=== PATIENT | male | born 1980 | race Caucasian/White ===

== ENCOUNTER 2016-09-07 15:03 | Inpatient (IN) ==
[2016-09-07] MEDS ORDERED: ASPIRIN PO STA (16:48)
[2016-09-07 16:55] LABS: MANUAL DIFF NEEDED? NO
[2016-09-07 17:00] LABS: BASO% 0.3 % (0.0-0.8); EOS# 0.16 X1000 (0.0-0.7); HEMATOCRIT 38.7 % (42.0-52.0); HEMOGLOBIN 13.2 g/dL (14.0-18.0); IMM GRAN# 0.02 X1000 (0.0-0.04); IMM GRAN% 0.3 % (0.0-0.5); LYMPH# 2.86 X1000 (1.2-3.4); LYMPH% 35.9 % (20.5-51.1); MCH 29.4 PG (27-31); MCHC 34.1 g/dL (33-37); MCV 86.2 FL (81-99); MONO% 8.8 % (1.7-9.3); MPV 12.7 FL (7.4-10.4); NEUT% 52.7 % (42.2-75.2); PLT 209 X1000 (130-400); RBC 4.49 XMIL (4.7-6.1)
--- NOTE | 2016-09-07 17:01 | PROVIDER DOCUMENTATION ---
This chart was entered by Ector Hilario Scribe, acting as scribe for Laura Laura MD. HPI-Chest Pain - General Chief Complaint: Chest Pain Stated Complaint: CHEST PAIN/ABNORMAL EKG Time Seen by Provider: 09/07/16 15:17 Source: patient Allergies/Adverse Reactions: Patient Allergies Allergy/AdvReac Type Severity Reaction Status Date / Time tramadol Allergy HIVES Verified 09/07/16 15:11 ketorolac tromethamine * AdvReac HIVES Verified 09/07/16 15:11 [From Toradol] Home Medications: Home Medication List Medication Instructions Recorded Confirmed Last Taken Type Alprazolam [Xanax] 1 mg PO DAILY 12/23/15 09/07/16 09/06/16 History Hydrocodone/APAP 7.5 mg/325 mg 1 each PO Q6H PRN PRN #10 tablet 04/02/1609/06/16 Rx [Basin-7.5] - History of Present Illness-CP Nature of Presenting Problem: pt is a 35 yo M that presents to the ER for abnormal labs and ekg. pt was having outpatient tests today per . Sent here due to it being abnormal. patient had chest pain days ago but pain has improved. no cardiac history Location: reports: other (left lower ches) Chest Pain Radiation: reports: no radiation Quality of Pain: reports: dull Severity in ED: mild Onset/Duration: abrupt, 3 days ago, 5 days ago Timing: improving Context/Activities at Onset: reports: none Modifying Factors: improves with: nothing Associated Symptoms: reports: nausea. denies: abdominal pain, back pain, dizziness, fatigue, fever/chills, shortness of breath, vomiting Aspirin Treatment Today: 325 mg x 1, provided by ED Prior Chest Pain/Cardiac Workup: reports: no prior chest pain, no prior cardiac workup Similar Symptoms Previously?: Yes Recently Seen Here or By Another Healthcare Provider: Yes Review of Systems - Adult - REVIEW OF SYSTEMS - ADULT Constitutional: denies: chills, fever Eyes: denies: decreased vision, blurred vision, double vision Ears, Nose, Mouth & Throat: denies: ear pain, sinus problem, throat pain, throat swelling Cardiovascular: reports: chest pain. denies: palpitations, syncope Respiratory: denies: shortness of breath, wheezing Gastrointestinal: reports: nausea. denies: abdominal pain, diarrhea, vomiting Genitourinary: reports: no symptoms reported Musculoskeletal: reports: no symptoms reported Integumentary: reports: no symptoms reported Neurological: reports: no symptoms reported Psychiatric: reports: no symptoms reported Endocrine: reports: no symptoms reported Hematologic/Lymphatic: reports: no symptoms reported Allergic/Immunologic: reports: no symptoms reported All Other Systems: Reviewed and Negative Past History - Adult - PAST MEDICAL HISTORY-ADULT Review of Records: reports: Old Records Reviewed, Nursing Assessment Review, Medications Reviewed Musculoskeletal: reports: chronic pain (back), intervertebral disc disease, neck /back injury Psychiatric: reports: anxiety Additional History: Disabled - PRIOR SURGERIES/PROCEDURES Surgical/Procedure History: reports: none - IMMUNIZATION STATUS Childhood Immunizations: See Nurse Assessment Flu Vaccine: See Nurse Assessment - FAMILY HISTORY Family History: reviewed, not pertinent - SOCIAL HISTORY Smoking: cigarettes, less than 1 pack/day Living Situation: family Physical Exam-General - PHYSICAL EXAM-ADULT Initial Vital Signs Reviewed: Yes - CONSTITUTIONAL General Appearance: alert, no apparent distress - EYES Eyes: PERRL/EOMI, pink conjunctivae - HEAD, EARS, NOSE, MOUTH & THROAT HENMT: normocephalic/atraumatic, moist mucous membranes, normal ENT inspection - NECK Neck: full range of motion, normal inspection - RESPIRATORY Respiratory: chest non-tender, lungs clear, normal breath sounds, no respiratory distress, no accessory muscle use - CARDIOVASCULAR Cardiovascular: regular rate, rhythm, no edema, no murmur - GASTROINTESTINAL (ABDOMEN) Abdominal Exam: normal bowel sounds, non tender, soft, no organomegaly, no pulsatile mass - MUSCULOSKELETAL Extremity: normal range of motion, normal inspection, no pedal edema - SKIN Integumentary: normal color, warm/dry - NEUROLOGIC Neurologic: grossly normal, no motor/sensory deficits - PSYCHIATRIC Psych/Mental Status: normal mood/affect, normal thought content, normal thought process, oriented x 3 Progress - PLAN OF CARE/RESULTS Progress/Plan/Lab Results: Vital Signs - 8 hr 09/07/16 15:07 09/07/16 16:33 09/07/16 16:44 Temperature 98.5 F Pulse Rate 78 85 65 Respiratory Rate 18 17 24 Blood Pressure 120/74 122/82 085/046 O2 Sat by Pulse Oximetry 99 95 94 L Laboratory Results - last 24 hr 05/07/2209/07/16 09/07/16 15:25 15:25 15:25 WBC RBC Hgb Hct MCV MCH MCHC RDW Std Deviation Plt Count MPV Immature Gran % (Auto) Neut % (Auto) Lymph % (Auto) [place] % (Auto) Eos % (Auto) Baso % (Auto) Immature Gran # (Auto) Neut # (Auto) Lymph # (Auto) Churchill # (Auto) Eos # (Auto) Baso # (Auto) PT INR APTT (Factor Assay) D-Dimer Sodium 136 Potassium 3.8 Chloride 103 Carbon Dioxide 22 L Anion Gap 11 BUN 15 Creatinine 0.8 Estimated GFR/1.73 m2 > 60 BUN/Creatinine Ratio 19 Glucose 95 Calculated Osmolality 273 Calcium 9.1 Magnesium 1.8 Total Bilirubin 0.20 AST 23 ALT 20 Alkaline Phosphatase 71 Creatine Kinase 450 H Creatine Kinase Index 1.1 CK-MB (CK-2) 4.98 Troponin T < 0.010 Nto-C-Izssqojzsus Pept 113 H Total Protein 6.7 Albumin 4.1 Globulin 3.0 Albumin/Globulin Ratio 2.0 09/07/16 09/07/16 15:25 15:25 WBC 7.97 RBC 4.49 L Hgb 13.2 L Hct 38.7 L MCV 86.2 MCH 29.4 MCHC 34.1 RDW Std Deviation 13.1 Plt Count 209 MPV 12.7 H Immature Gran % (Auto) 0.3 Neut % (Auto) 52.7 Lymph % (Auto) 35.9 Churchill % (Auto) 8.8 Eos % (Auto) 2.0 Baso % (Auto) 0.3 Immature Gran # (Auto) 0.02 Neut # (Auto) 4.21 Lymph # (Auto) 2.86 Churchill # (Auto) 0.70 H Eos # (Auto) 0.16 Baso # (Auto) 0.02 PT 12.6 INR 0.91 APTT (Factor Assay) 36.9 D-Dimer < 0.22 L Sodium Potassium Chloride Carbon Dioxide Anion Gap BUN Creatinine Estimated GFR/1.73 m2 BUN/Creatinine Ratio Glucose Calculated Osmolality Calcium Magnesium Total Bilirubin AST ALT Alkaline Phosphatase Creatine Kinase Creatine Kinase Index CK-MB (CK-2) Troponin T Ens-J-Oquckkttifp Pept Total Protein Albumin Globulin Albumin/Globulin Ratio Orders Category Date Time Status Admit - [facility] Routine AdmDCTranf 09/07/16 17:49 Ordered Call Admitting on Arrival AT ADMISSION Care 09/07/16 17:49 Active Cardiac Monitoring DIRECTED Care 09/07/16 16:48 Active Saline Loc NOW Care 09/07/16 16:48 Active CBC WITH ELECTRONIC DIFF [HEME] Stat Lab 09/07/16 15:25 Completed CK PROFILE [SP CHEM] Stat Lab 09/07/16 15:25 Completed COMPREHENSIVE METABOLIC PANEL [CHEM] Stat Lab 09/07/16 15:25 Completed D-DIMER PL [COAG] Stat Lab 09/07/16 15:25 Completed MAGNESIUM [CHEM] Stat Lab 09/07/16 15:25 Completed PRO B-NATRIURETIC PEPTIDE Stat Lab 09/07/16 15:[address]IME WITH INR [address] [COAG] Stat Lab 09/07/16 15:[address] [COAG] Stat Lab 09/07/16 15:25 Completed TROPONIN T Stat Lab 09/07/16 15:[address] W/POSS RFLX CULT [URINALYSIS] Stat Lab 09/07/16 16:48 Uncollected URINE DRUG SCREEN PL Stat Lab 09/07/16 16:48 Uncollected Aspirin Med 09/07/16 16:48 Discontinued 325 mg PO STAT STA Telemetry [OM.EQ] Routine Oth 09/07/16 17:49 Active EKG [EKG] Stat Ther 09/07/16 16:48 Draft Transfer/Admit Order [TRANSFER] Routine Transfer 09/07/16 17:51 Ordered outpatient xray done today, negative per Vital Signs Temp Pulse Resp BP Pulse Ox 09/07/16 16:44 65 24 085/046 94 L 09/07/16 16:33 85 17 122/82 95 09/07/16 15:07 98.5 F 78 18 120/74 99 tramadol Allergy (Verified 09/07/16 15:11) HIVES ketorolac tromethamine * [From Toradol] Adverse Reaction (Verified 09/07/16 15: 11) HIVES Alprazolam [Xanax] 1 mg PO DAILY 12/23/15 Hydrocodone/APAP 7.5 mg/325 mg [Basin-7.5] 1 each PO Q6H PRN PRN #10 tablet Laboratory 09/07/16 09/07/16 09/07/16 15:25 15:25 15:25 WBC 7.97 RBC 4.49 L Hgb 13.2 L Hct 38.7 L MCV 86.2 MCH 29.4 MCHC 34.1 RDW Std Deviation 13.1 Plt Count 209 MPV 12.7 H Immature Gran % (Auto) 0.3 Neut % (Auto) 52.7 Lymph % (Auto) 35.9 Churchill % (Auto) 8.8 Eos % (Auto) 2.0 Baso % (Auto) 0.3 Immature Gran # (Auto) 0.02 Neut # (Auto) 4.21 Lymph # (Auto) 2.86 Churchill # (Auto) 0.70 H Eos # (Auto) 0.16 Baso # (Auto) 0.02 PT 12.6 INR 0.91 APTT (Factor Assay) 36.9 D-Dimer < 0.22 L Sodium Potassium Chloride Carbon Dioxide Anion Gap BUN Creatinine Estimated GFR/1.73 m2 BUN/Creatinine Ratio Glucose Calculated Osmolality Calcium Magnesium Total Bilirubin AST ALT Alkaline Phosphatase Creatine Kinase Creatine Kinase Index CK-MB (CK-2) Troponin T Wsv-Q-Qrsofljjcjw Pept 113 H Total Protein Albumin Globulin Albumin/Globulin Ratio 09/07/16 09/07/16 15:25 15:25 WBC RBC Hgb Hct MCV MCH MCHC RDW Std Deviation Plt Count MPV Immature Gran % (Auto) Neut % (Auto) Lymph % (Auto) Churchill % (Auto) Eos % (Auto) Baso % (Auto) Immature Gran # (Auto) Neut # (Auto) Lymph # (Auto) Churchill # (Auto) Eos # (Auto) Baso # (Auto) PT INR APTT (Factor Assay) D-Dimer Sodium 136 Potassium 3.8 Chloride 103 Carbon Dioxide 22 L Anion Gap 11 BUN 15 Creatinine 0.8 Estimated GFR/1.73 m2 > 60 BUN/Creatinine Ratio 19 Glucose 95 Calculated Osmolality 273 Calcium 9.1 Magnesium 1.8 Total Bilirubin 0.20 AST 23 ALT 20 Alkaline Phosphatase 71 Creatine Kinase 450 H Creatine Kinase Index 1.1 CK-MB (CK-2) 4.98 Troponin T < 0.010 Lih-W-Nixhxaoubqm Pept Total Protein 6.7 Albumin 4.1 Globulin 3.0 Albumin/Globulin Ratio 2.0 Result Diagrams: 09/07/16 15:25 09/07/16 15:25 - EKG 1 Time of EKG reading by physician:: 16:57 EKG Read and Signed by:: Laura Laura EKG Interpretation (*Must complete 3 of following elements*): Abnormal Rate: 74 Rhythm: NSR [place]: normal QRS: normal ST Wave: non-specific ST changes - CONSULTS/PCP/HOSPITALIST Notification #1 *Consult/PCP/Hospitalist*: Time Discussed: 17:49 Consult Disposition: Will see in ED Departure - Departure Time of Disposition Decision: 17:48 DIAGNOSIS: Chest pain in adult, EKG abnormalities Disposition: ADMITTED INPATIENT 09 Certified Medical Emergency: Emergent Condition: Stable Referrals and Follow-Ups: Casey Rob MD [Primary Care Provider] - - Critical Care Note This patient required my direct & personal management of CC.: No This chart was documented by the indicated scribe, (Ector Hilario, Scribe) and accurately reflects the services I performed and decisions made by me, Laura Laura MD, as attested by the provider's signature.
[2016-09-07 17:05] LABS: INR 0.91 (0.86-1.15); PROTIME 12.6 Seconds (12.1-15.5)
[2016-09-07 17:06] LABS: PTT PL 36.9 Seconds (22.6-43.9)
[2016-09-07 17:14] LABS: AGAP 11; ALBUMIN 4.1 g/dL (3.5-5.0); ALKALINE PHOSPHATASE 71 U/L (32-122); BUN 15 mg/dL (8-22); CALCIUM 9.1 mg/dL (8.8-10.2); CHLORIDE 103 mmol/L (98-107); COSMO 273; GOT 23 U/L (10-34); GPT 20 U/L (10-44); MAGNESIUM 1.8 mg/dL (1.5-2.7); POTASSIUM 3.8 mmol/L (3.5-5.1); SODIUM 136 mmol/L (136-145); TCO2 22 mmol/L (25-35); TOTAL PROTEIN 6.7 g/dL (6.3-8.3)
--- NOTE | 2016-09-07 17:15 | EKG Report ---
Test Performed on : 09/07/2016 4:57:36 PM Test Reason : CHEST PAIN Blood Pressure : / mmHG Vent. Rate : 074 BPM Atrial Rate : 074 BPM P-R Int : 124 ms QRS Dur : 084 ms QT Int : 416 ms P-R-T Axes : 008 065 -08 degrees QTc Int : 461 ms Normal sinus rhythm. Nonspecific T wave abnormality Prolonged QT Abnormal ECG When compared with ECG of 07-SEP-2016 13:59, (Unconfirmed) Nonspecific T wave abnormality has replaced inverted T waves in Inferior leads Unconfirmed Result
[2016-09-07 17:17] LABS: CK PROFILE 450 U/L (24-204)
[2016-09-07 17:36] LABS: CK INDEX 1.1 (0.0-2.5); CK-MB 4.98 ng/mL (0.0-5.0)
[2016-09-07 18:23] LABS: UR AMPHETAMINES QUAL NONE DETECTED (NONE DETECT); UR BARBITUATES QUAL NONE DETECTED (NONE DETECT); UR BENZODIAZEPIN QUAL NONE DETECTED (NONE DETECT); UR CANNABINOIDS QUAL NONE DETECTED (NONE DETECT); UR COCAINE QUAL NONE DETECTED (NONE DETECT); UR MDMA QUAL NONE DETECTED (NONE DETECT); UR METHADONE QUAL NONE DETECTED (NONE DETECT); UR METHAMPHETAMINE QUAL NONE DETECTED (NONE DETECT); UR OPIATES QUAL NONE DETECTED (NONE DETECT); UR OXYCODONE QUAL NONE DETECTED (NONE DETECT); UR PCP QUAL NONE DETECTED (NONE DETECT); UR TCA QUAL NONE DETECTED (NONE DETECT)
[2016-09-07 18:32] LABS: BILIRUBIN URINE NEGATIVE (NEGATIVE); BLOOD URINE NEGATIVE (NEGATIVE); CLARITY SL. CLOUDY (CLEAR); COLOR YELLOW; GLUCOSE URINE NEGATIVE (NEGATIVE); LEUKOCYTES URINE 2+ (NEGATIVE); NITRITE URINE NEGATIVE (NEGATIVE); PROTEIN URINE NEGATIVE (NEGATIVE); SP GRAVITY URINE 1.025; UROBILINOGEN URINE 4+(12 mg/dL)
[2016-09-07 18:34] LABS: URINE CAST NONE SEEN /LPF; URINE CRYSTAL NONE SEEN /HPF; URINE CULTURE PL NEEDED? YES; URINE EPITHELIAL CELLS <10 /HPF (<10); URINE SOURCE CLEAN CATCH
[2016-09-07] MEDS ORDERED: ZOFRAN IV PRN (20:56)
[2016-09-07] MEDS ORDERED: NITROGLYCERIN SL PRN (20:56)
[2016-09-07] MEDS ORDERED: TYLENOL PO PRN (20:56)
[2016-09-07] MEDS ORDERED: SALINE LOCK IV FLUID XX ONE (20:56)
[2016-09-07] MEDS ORDERED: NORCO-7.5 PO PRN (20:58)
[2016-09-07 22:12] LABS: CK-MB 3.78 ng/mL (0.0-5.0)
--- NOTE | 2016-09-08 05:04 | EKG Report ---
Test Performed on : 09/08/2016 04:32:31 AM Test Reason : cp Blood Pressure : / mmHG Vent. Rate : 073 BPM Atrial Rate : 073 BPM P-R Int : 138 ms QRS Dur : 076 ms QT Int : 390 ms P-R-T Axes : 058 056 236 degrees QTc Int : 429 ms Normal sinus rhythm. T wave abnormality, consider lateral ischemia Abnormal ECG When compared with ECG of 07-SEP-2016 16:57, (Unconfirmed) No significant change was found Unconfirmed Result
[2016-09-08 06:54] LABS: HEMATOCRIT 41.8 % (42.0-52.0); HEMOGLOBIN 13.8 g/dL (14.0-18.0); MCH 28.5 PG (27-31); MCV 86.2 FL (81-99); MPV 11.9 FL (7.4-10.4); RBC 4.85 XMIL (4.7-6.1)
[2016-09-08] MEDS ORDERED: PRILOSEC PO SCH (07:00)
[2016-09-08 07:27] LABS: AGAP 10; ALKALINE PHOSPHATASE 66 U/L (32-122); BUN 17 mg/dL (8-22); CALCIUM 9.3 mg/dL (8.8-10.2); CHLORIDE 106 mmol/L (98-107); COSMO 277; GOT 17 U/L (10-34); GPT 17 U/L (10-44); HDL 37 mg/dL (35-55); LDL 118 mg/dL; POTASSIUM 4.2 mmol/L (3.5-5.1); SODIUM 138 mmol/L (136-145); TCO2 22 mmol/L (25-35); TOTAL PROTEIN 6.5 g/dL (6.3-8.3); TRIGLYCERIDES 105 mg/dL (39-160); VLDL 21 mg/dL
[2016-09-08 07:50] LABS: CK INDEX 1.1 (0.0-2.5); CK-MB 3.03 ng/mL (0.0-5.0)
[2016-09-08] MEDS ORDERED: XANAX PO SCH (09:00)
[2016-09-08 11:50] VITALS: BP 114/56
--- NOTE | 2016-09-08 13:57 | HISTORY AND PHYSICAL ---
CHIEF COMPLAINT: Chest pain, abnormal EKG. HISTORY OF PRESENT ILLNESS: This is a 35-year-old male with a history of chronic back pain, who presented to the emergency room under the recommendation of his primary care physician. Evidently, he had chest pain over the past days and Dr. Rob had ordered outpatient labs and then outpatient EKG. Dr. Rob was called after the EKG was performed as it was noted to have some T-wave inversion inferolateral in leads 2, 3, F, V5, and V6. Dr. Rob was called and he sent the patient to the emergency room for further evaluation. In the emergency room. The 1st EKG was done at 2 o'clock. Repeat EKG in the emergency room at 4:57 revealed nonspecific T-wave abnormality but no inverted T-waves inferolateral. He was noted to have troponins that were negative on multiple occasions with CK-MBs that were within normal limits. The patient stated that he had chest pain for a few days. He described this chest pain as a dull type chest pain at his left lower ribs. This pain started and stopped spontaneously. It could be somewhat recreated with palpation. He denied any known injury. He is being admitted for further evaluation and treatment. PAST MEDICAL HISTORY: Chronic back pain with chronic opiate use, degenerative disk disease, anxiety. PAST SURGICAL HISTORY: Denied. SOCIAL HISTORY: He smokes about a half a pack a day. He denies alcohol or illicit drug use. ALLERGIES: Toradol which causes hives. HOME MEDICATIONS: [place] 7.5 b.i.d. p.r.n., Xanax 1 mg b.i.d. REVIEW OF SYSTEMS: A 14 point review of systems is discussed with patient with pertinent positives stated in the HPI. He denied palpitations, dizziness, syncope, shortness of breath, PND, orthopnea, nausea, vomiting, diarrhea, constipation, black or bloody vomitus, black or bloody stools, hematuria, dysuria, frequency, urgency. PHYSICAL EXAMINATION: GENERAL: This is a very pleasant, 35-year-old male who is sitting in the bed, in no distress. VITAL SIGNS: Blood pressure is 113/77, with a heart rate of 74, respirations are 18, temperature is 98 degrees, with room air saturations of 96 to 99%. HEENT: Head is normocephalic, atraumatic. Pupils equal, round, react to light. EOMs are intact. Sclerae are anicteric. Mucous membranes are moist. NECK: Supple with trachea midline. CARDIOVASCULAR: Regular rate and rhythm. S1 and S2 appreciated. PULMONARY: Breath sounds are clear with no increased work of breathing noted. GASTROINTESTINAL: Abdomen was soft, nontender, nondistended with bowel sounds in all 4 quadrants. BACK: No CVAT. No spine tenderness. MUSCULOSKELETAL: Good range of motion to joints. EXTREMITIES: No clubbing, cyanosis, or edema. Calves are nontender. Pulses are palpable x4. NEUROLOGIC: He is alert and oriented x3. Cranial nerves 2 through 12 grossly intact. DIAGNOSTICS: WBC is 7.9, with hemoglobin 13.2, hematocrit 38.7, and platelets of 209,000. D- dimer is less than 0.22. Sodium 136, potassium 3.8, BUN 15, creatinine 0.8, with a glucose of 95. Troponin is less than 0.010 on multiple occasions. CK-MB is 3.78 and 4.98 with urine drug screen negative. Chest x-ray reveals no acute abnormality with lungs well expanded, heart not enlarged, vessels not distended, no pneumonia, no pleural effusions. ASSESSMENT: 1. Chest pain. 2. Abnormal electrocardiogram. 3. Tobacco abuse. 4. Chronic pain. PLAN: He will be admitted to the hospital. Placed on telemetry. We will continue to trend cardiac enzymes. We will repeat his EKG in the morning. He will be NPO after midnight for a nuclear stress test in the morning. Further treatments pending hospital course. Dictated by KATY Rangel for Del Cardenas MD cc: KATY Rangel MD
--- NOTE | 2016-09-08 16:24 | DISCHARGE SUMMARY ---
ADMISSION DATE: 09/07/2016 DISCHARGE DATE: 09/08/2016 DIAGNOSES: 1. Chest pain. 2. Abnormal EKG. 3. Tobacco abuse. 4. Chronic back pain. DIAGNOSTICS: A 09/07/2016 chest x-ray revealed no acute abnormality. HOSPITAL COURSE: Mr. Rock had experienced some left lower chest wall pain 3-5 days prior to being admitted. He was evaluated by his primary care physician. Dr. Rob sent for outpatient labs and EKG. EKG revealed inverted T-waves in the inferolateral leads. Therefore, he was sent to the ER for further evaluation. Repeat EKGs revealed nonspecific T-wave abnormality with negative troponins as well as CK-MB on multiple occasions. Telemetry revealed sinus rhythm. He had no further chest pain while in the hospital. We attempted to do a nuclear stress test at [facility] but we were unable to have the test as he had negative enzymes and no further chest pain. He is being discharged from [place]. He will go to [facility] and at that time his stress test will be performed. DISCHARGE MEDICATIONS: 1. [place] 7.5/325, 1 b.i.d. p.r.n. 2. Xanax 1 mg p.o. b.i.d. DISCHARGE VITAL SIGNS: Blood pressure 114/56, heart rate 61, respirations 19, temperature 97.6 degrees oral with room air saturations of 99%. DISCHARGE DIET: He will remain NPO until after his test is completed and he is instructed by the Nuclear Medicine staff. FOLLOWUP: He is to follow Dr. Rob in the next 1-2 weeks. PHYSICAL EXAMINATION: Cardiovascular: Regular rate and rhythm. S1 and S2 appreciated. Pulmonary: Breath sounds are clear with no increased work of breathing noted. Gastrointestinal: Abdomen was soft, nontender, nondistended with bowel sounds in all 4 quadrants. Extremities: No clubbing, cyanosis, or edema. Calves are nontender. Pulses are palpable x4. Neurologic: He is alert and oriented x3. Cranial nerves 2-12 grossly intact. DISPOSITION: Mr. Rock is being discharged in stable condition with his girlfriend. He has to go to outpatient admitting at [facility] where a Nuclear Stress Test will be performed. DISCHARGE TIME: This is a greater than 30 minute discharge. Dictated by KATY Rangel for Del Cardenas MD cc: KATY Rangel MD
== END 2016-09-08 12:55 | disposition home or self-care (01) ==
LOC: P.ED 15:03 → P.MEDSURG 19:26
PROVIDERS: ATTEND Family Medicine

== ENCOUNTER 2019-06-03 08:16 | Inpatient (IN) ==
[2019-06-03 11:27] LABS: BASO# 0.05 X1000 (0.0-0.2); BASO% 0.3 % (0.0-0.8); EOS# 0.01 X1000 (0.0-0.7); EOS% 0.1 % (0.0-10.0); HEMATOCRIT 52.4 % (42.0-52.0); HEMOGLOBIN 17.6 g/dL (14.0-18.0); IMM GRAN# 0.11 X1000 (0.0-0.04); IMM GRAN% 0.6 % (0.0-0.5); LYMPH# 3.95 X1000 (1.2-3.4); LYMPH% 21.9 % (20.5-51.1); MCH 27.5 PG (27-31); MCHC 33.6 g/dL (33-37); MCV 81.7 FL (81-99); MONO# 1.02 X1000 (0.11-0.59); MONO% 5.7 % (1.7-9.3); MPV 12.8 FL (7.4-10.4); NEUT% 71.4 % (42.2-75.2); PLT 283 X1000 (130-400); RBC 6.41 XMIL (4.7-6.1); RDW 13.8 % (11.5-14.5); WBC 18.04 X1000 (4.8-10.8)
[2019-06-03 11:30] LABS: AGAP 22; ALBUMIN 4.7 g/dL (3.5-5.0); ALKALINE PHOSPHATASE 86 U/L (32-122); BUN 28 mg/dL (8-22); CALCIUM 10.2 mg/dL (8.8-10.2); CHLORIDE 99 mmol/L (98-107); COSMO 289; ESTIMATED GFR > 60; GLUCOSE 108 mg/dL (70-104); GOT 19 U/L (10-34); GPT 17 U/L (10-44); LIPASE 22 U/L (13-60); POTASSIUM 4.5 mmol/L (3.5-5.1); SODIUM 142 mmol/L (136-145); TCO2 22 mmol/L (25-35); TOTAL PROTEIN 8.7 g/dL (6.3-8.3)
[2019-06-03] MEDS ORDERED: NS 1,000 ML, NS 1,000 ML IV ONE ×2 (11:52)
[2019-06-03] MEDS ORDERED: NS 1,000 ML ONE (11:55)
[2019-06-03] MEDS ORDERED: REGLAN IV ONE (11:55)
--- NOTE | 2019-06-03 12:41 | Diag Imaging Result Doc PS360 ---
EXAM: CT ABD/PELVIS W/IV CONT ONLY 06/03/2019 HISTORY: abd pain, vomiting TECHNIQUE: This exam was performed using automated exposure control, adjustment of mA or kV according to patient size, and/or use of iterative reconstruction technique. COMMENT: There are patchy ill-defined and tree-in-bud opacities present in the right lower lobe consistent with minimal pneumonia/pneumonitis. This is worse than on 11/21/2014. There are some calcified granulomata in the liver and spleen. The gallbladder is unremarkable. The adrenal glands and pancreas are within normal limits. The kidneys are without evidence of hydronephrosis or mass. The appendix is normal in appearance. There is no evidence of abdominal aortic aneurysm or significant adenopathy. Pelvis: There is no free fluid. The urinary bladder is not distended. There is no evidence of significant adenopathy. There is no evidence of acute disease in the visualized portion of the skeleton. IMPRESSION: Minimal bronchopneumonia right lower lobe. Electronically signed by Jean Yeboah 06/03/2019 12:39 PM
[2019-06-03 12:55] LABS: INR 0.94
[2019-06-03 12:56] LABS: PTT 33.5 Seconds (22.3-41.8)
--- NOTE | 2019-06-03 13:24 | Diag Imaging Result Doc PS360 ---
EXAM: CHEST-1 VIEW 06/03/2019 HISTORY: r/o sepsis TECHNIQUE: PA and lateral chest COMMENT: There is no evidence of acute cardiac or pulmonary disease. Compared to 12/14/2018 there has been no significant change. IMPRESSION: No evidence of acute disease. Electronically signed by Jean Yeboah 06/03/2019 1:21 PM
[2019-06-03] MEDS ORDERED: ZOSYN 3.375 GM in NS 50 ML IV ONE (13:46)
[2019-06-03] MEDS ORDERED: VANCOMYCIN 1 GM/NS 1 GM/250 ML IVPB IV ONE (13:46)
--- NOTE | 2019-06-03 14:31 | PROVIDER DOCUMENTATION ---
This chart was entered by Kathy Nuñez Scribe, acting as scribe for Seth Boone MD. HPI-Abdominal Pain/GI Problem - General Chief Complaint: N/V/D Stated Complaint: VOMITING Time Seen by Provider: 06/03/19 11:38 Source: patient Allergies/Adverse Reactions: Patient Allergies Allergy/AdvReac Type Severity Reaction Status Date / Time tramadol Allergy HIVES Verified 05/30/19 07:33 ketorolac tromethamine * AdvReac HIVES Verified 05/30/19 07:33 [From Toradol] Home Medications: Home Medication List Medication Instructions Recorded Confirmed Last Taken Type Hydrocodone/Acetaminophen 1 ea PO Q6HR 02/23/19 05/30/19 05/27/19 History [Hydrocodone-Acetamin 7.5-325] - History of Present Illness-ABD Nature of Presenting Problems: Pt is a 38 yom who presents to the ED with a cc of abd pain. Pt states that his symptoms began over a week ago and he [place] [facility] [place] reports N/V/D/ and sob w/ chest pain w/ exertion. Pt denies any fever and states that he cant "eat or drink anything" Pt denies any bloody stool or hematemesis. Pt does not present to the ED with any other complaints. Abdominal Pain Onset Location: reports: epigastric, generalized abdomen Quality of Pain: reports: sharp Severity in ED: reports: mild Onset/Duration: reports: 1 week ago Timing: reports: still present Activities at Onset: reports: none Exposure to sick contacts?: No Modifying Factors: improves with: nothing Associated Symptoms: reports: chest pain (w/ exertion), diarrhea, nausea, shortness of breath, vomiting Last BM: unsure Dark Stools Present?: reports: none noticed Rectal Bleeding: reports: none Rectal Pain: reports: none Emesis Description: reports: none Bruising or Bleeding Gums?: No Similar Symptoms Previously?: No Recently seen or treated by another doctor?: No Review of Systems - Adult - REVIEW OF SYSTEMS - ADULT Constitutional: reports: see HPI Eyes: reports: no symptoms reported Ears, Nose, Mouth & Throat: reports: see HPI, throat pain (sore) Cardiovascular: reports: see HPI, chest pain (w/ exertion) Respiratory: reports: see HPI, shortness of breath (w/ exertion) Gastrointestinal: reports: see HPI, abdominal pain, diarrhea, nausea, vomiting Genitourinary: reports: no symptoms reported Musculoskeletal: reports: no symptoms reported Integumentary: reports: no symptoms reported Neurological: reports: no symptoms reported Psychiatric: reports: no symptoms reported Endocrine: reports: no symptoms reported Hematologic/Lymphatic: reports: no symptoms reported Allergic/Immunologic: reports: no symptoms reported All Other Systems: Reviewed and Negative Past History - Adult - PAST MEDICAL HISTORY-ADULT Review of Records: reports: Old Records Reviewed Major Childhood Illnesses: reports: denies history Cardiovascular: reports: IN Respiratory: reports: denies history Gastrointestinal: reports: denies history Obstetrical/Gynecological: reports: denies history Genitourinary: reports: denies history Musculoskeletal: reports: chronic pain (back), intervertebral disc disease, ne ck/back injury Neurological: reports: denies history Psychiatric: reports: anxiety Endocrine/Immune: reports: denies history Other Conditions: reports: denies history Additional History: Disabled - PRIOR SURGERIES/PROCEDURES Surgical/Procedure History: reports: none - IMMUNIZATION STATUS Childhood Immunizations: See Nurse Assessment Flu Vaccine: See Nurse Assessment - FAMILY HISTORY Family History: reviewed, not pertinent - SOCIAL HISTORY Smoking: cigarettes Provider spent 3-5 mins advising pt. on dangers of tobacco.: Discussed manners to quit use, and f/u contacts for add'l counseling. Substance Use: denies Living Situation: family Physical Exam-General - PHYSICAL EXAM-ADULT Initial Vital Signs Reviewed: No - CONSTITUTIONAL General Appearance: alert, no apparent distress - EYES Eyes: PERRL/EOMI, pink conjunctivae - HEAD, EARS, NOSE, MOUTH & THROAT HENMT: normocephalic/atraumatic, moist mucous membranes, normal ENT inspection, pharynx normal - NECK Neck: normal inspection - RESPIRATORY Respiratory: chest non-tender, lungs clear, normal breath sounds, no pleuratic chest pain, no respiratory distress. negative: crackles, wheezing - CARDIOVASCULAR Cardiovascular: normal peripheral pulses, regular rate, rhythm, no edema, no gal lop, no JVD, no murmur. negative: bradycardia, tachycardia - GASTROINTESTINAL (ABDOMEN) Abdominal Exam: tenderness (diffused, epigastric) - MUSCULOSKELETAL Back Exam: normal inspection, no CVA tenderness, no vertebral tenderness Extremity: normal range of motion, non-tender, normal inspection - SKIN Integumentary: normal color, normal turgor, warm/dry - PSYCHIATRIC Psych/Mental Status: normal mood/affect, normal thought content, normal thought process, oriented x 3 Progress - PLAN OF CARE/RESULTS Progress/Plan/Lab Results: Vital Signs - 8 hr 06/03/19 08:32 06/03/19 10:43 Temperature 98 F 97.8 F Pulse Rate 123 H 103 H Respiratory Rate 18 18 Blood Pressure 117/79 132/101 O2 Sat by Pulse Oximetry 95 99 Laboratory Results - last 24 hr 06/03/19 06/03/19 06/03/19 11:04 11:04 11:04 WBC 18.04 H RBC 6.41 H Hgb 17.6 Hct 52.4 H MCV 81.7 MCH 27.5 MCHC 33.6 RDW Std Deviation 13.8 Plt Count 283 MPV 12.8 H Immature Gran % (Auto) 0.6 H Neut % (Auto) 71.4 Lymph % (Auto) 21.9 [place] % (Auto) 5.7 Eos % (Auto) 0.1 Baso % (Auto) 0.3 Immature Gran # (Auto) 0.11 H Neut # (Auto) 12.90 H Lymph # (Auto) 3.95 H [place] # (Auto) 1.02 H Eos # (Auto) 0.01 Baso # (Auto) 0.05 Sodium 142 Potassium 4.5 Chloride 99 Carbon Dioxide 22 L Anion Gap 22 BUN 28 H Creatinine 1.0 Estimated GFR/1.73 m2 > 60 BUN/Creatinine Ratio 28 Glucose 108 H Calculated Osmolality 289 Calcium 10.2 Total Bilirubin 1.00 AST 19 ALT 17 Alkaline Phosphatase 86 Total Protein 8.7 H Albumin 4.7 Globulin 4.0 Albumin/Globulin Ratio 1.0 Amylase 60 Lipase 22 Orders Category Date Time Status Cardiac Monitoring DIRECTED Care 06/03/19 11:47 Active ED: Orthostatic Vital Signs (E DIRECTED Care 06/03/19 09:34 Active Notify MD of + Sepsis Screen NOW Care 06/03/19 11:47 Active Notify Physician As Ordered Care 06/03/19 11:47 Active Saline Loc DIRECTED Care 06/03/19 10:40 Active NPO Diet 06/03/19 10:40 Active CHEST-1 VIEW [RAD] Stat Exams 06/03/19 11:[address] ABD/PELVIS W/IV CONT ONLY [CT] Stat Exams 06/03/19 11:52 Ordered AMYLASE [CHEM] Stat Lab 06/03/19 11:04 Completed BLOOD CULTURE [BLDCUL] Stat Lab 06/03/19 11:50 Ordered CBC WITH ELECTRONIC DIFF [HEME] Stat Lab 06/03/19 11:04 Completed CK PROFILE [SP CHEM] Stat Lab 06/03/19 11:04 Received COMPREHENSIVE METABOLIC PANEL [CHEM] Stat Lab 06/03/19 11:04 Completed LACTATE, PLASMA [CHEM] Q3H Lab 06/03/19 11:48 Received LACTATE, PLASMA [CHEM] Q3H Lab 06/03/19 15:00 Uncollected LACTATE, PLASMA [CHEM] Q3H Lab 06/03/19 18:00 Uncollected LIPASE [CHEM] Stat Lab 06/03/19 11:04 Completed PROTIME WITH INR [COAG] Stat Lab 06/03/19 11:04 Received PTT [COAG] Stat Lab 06/03/19 11:04 Received TROPONIN T HIGH SENSITIVITY Stat Lab 06/03/19 11:04 Received URINALYSIS W/POSS RFLX CULT [URINALYSIS] Stat Lab 06/03/19 10:40 Uncollected 0.9% Sodium Chloride Inj [Ns] 1,000 ml Med 06/03/19 11:52 Active 0.9% Sodium Chloride Inj [Ns] 1,000 ml IV 999 mls/hr Metoclopramide [Reglan] Med 06/03/19 11:55 Discontinued 10 mg IV NOW ONE Oxygen Device Stat Oth 06/03/19 11:47 Active Result Diagrams: 06/03/19 11:04 06/03/19 11:04 - CONSULTS/PCP/HOSPITALIST Notification #1 *Consult/PCP/Hospitalist*: [facility] Time Discussed: 13:50 Consult Disposition: Will see in ED, Admit Departure - Departure Date of Disposition Decision: 06/03/19 Time of Disposition Decision: 13:49 DIAGNOSIS: Right lower lobe pneumonia Qualifiers: Pneumonia type: due to unspecified organism Qualified Code(s): J18.1 - Lobar pneumonia, unspecified organism Sepsis Qualifiers: Sepsis type: sepsis due to unspecified organism Sepsis acute organ dysfunction status: without acute organ dysfunction Qualified Code(s): A41.9 - Sepsis, unspecified organism Vomiting Qualifiers: Vomiting type: unspecified Vomiting Intractability: non-intractable Nausea presence: with nausea Qualified Code(s): R11.2 - Nausea with vomiting, unspecified Disposition: ADMITTED INPATIENT 09 Certified Medical Emergency: Emergent Condition: Good Referrals and Follow-Ups: Casey Rob MD [Primary Care Provider] - - Critical Care Note This patient required my direct & personal management of CC.: No Attestation - Physician/ TANYA Attestation Patient care was provided by Advanced Practice Provider:: No The physician spent face to face time with patient:: Yes Advanced Practice Provider documentation review:: Supervising physician onsite and consulted in the evaluation and care of this patient. The physician did have a face to face encounter with the patient. This chart was documented by the indicated scribe, (Kathy Nuñez Scribe) and accurately reflects the services I performed and decisions made by me, Seth Boone MD, as attested by the provider's signature.
[2019-06-03 14:55] LABS: URINE SOURCE CLEAN CATCH
[2019-06-03 15:04] LABS: BILIRUBIN URINE NEGATIVE (NEGATIVE); BLOOD URINE NEGATIVE (NEGATIVE); COLOR YELLOW; GLUCOSE URINE NEGATIVE (NEGATIVE); KETONE URINE >150 mg/dL (NEGATIVE); LEUKOCYTES URINE NEGATIVE (NEGATIVE); NITRITE URINE NEGATIVE (NEGATIVE); PH URINE 6.5; PROTEIN URINE 70 mg/dL (NEGATIVE); TURBIDITY URINE CLEAR (CLEAR); UROBILINOGEN URINE 3 mg/dL (NORMAL)
[2019-06-03 15:05] LABS: UR EPITHELIAL CELLS <10 /HPF (<10); URINE BACTERIA NEGATIVE /HPF; URINE RBC <10 /HPF (<10); URINE WBC <10 /HPF (<10)
[2019-06-03 15:10] LABS: SP GRAVITY URINE 1.005
[2019-06-03 15:14] LABS: UR AMPHETAMINES QUAL NONE DETECTED (NONE DETECT); UR BARBITUATES QUAL NONE DETECTED (NONE DETECT); UR BENZODIAZEPIN QUAL NONE DETECTED (NONE DETECT); UR CANNABINOIDS QUAL PRESUMPTIVE POSITIVE (NONE DETECT); UR COCAINE QUAL NONE DETECTED (NONE DETECT); UR METHADONE QUAL NONE DETECTED (NONE DETECT); UR METHAMPHETAMINE QUAL NONE DETECTED (NONE DETECT); UR OPIATES QUAL NONE DETECTED (NONE DETECT); UR OXYCODONE QUAL NONE DETECTED (NONE DETECT); UR PCP QUAL NONE DETECTED (NONE DETECT); UR PROPOXYPHENE QUAL NONE DETECTED (NONE DETECT); UR TCA QUAL NONE DETECTED (NONE DETECT)
[2019-06-03] MEDS ORDERED: TYLENOL PO PRN (15:21)
[2019-06-03] MEDS ORDERED: ZITHROMAX 500 MG/NS 500 MG/250 ML IVPB IV SCH (15:21)
[2019-06-03] MEDS ORDERED: ZOFRAN IV PRN (15:21)
--- NOTE | 2019-06-03 15:46 | HISTORY AND PHYSICAL ---
PRIMARY CARE PHYSICIAN: Dr. Rob. CHIEF COMPLAINT: Abdominal pain with nausea, vomiting, and shortness of breath with exertion that has progressively worsened. HISTORY OF PRESENTING ILLNESS: This is a 38-year-old male, who presents to [facility] ER with complaints of generalized abdominal pain, nausea, vomiting, diarrhea, shortness of breath with exertion that began approximately a week ago and has progressively worsened. Workup in the emergency room showed a white blood cell count of 18.04. Plasma lactate was 2.8. Urinalysis is pending. We did do a CT of the abdomen and pelvis that showed a minimal bronchopneumonia in the right lower lobe, so he will be admitted for further evaluation and treatment. PAST MEDICAL HISTORY: Chronic back pain, chronic opiate use, degenerative disk disease, anxiety, IN, and chronic right hand pain. PAST SURGICAL HISTORY: A right hand surgery. FAMILY HISTORY: Reviewed and noncontributory. SOCIAL HISTORY: Currently lives with his mom. Smokes a half a pack of cigarettes a day and has done so for 20 years. Denied any alcohol or illicit drug use. ALLERGIES: Tramadol and Ketoralac. HOME MEDICATIONS: We will need to update, reconcile, review and restart as appropriate. We will place an order for nursing to update and confirm home medications. LABORATORY DATA: Showed a white blood cell count of 18.04, hemoglobin 17.6, hematocrit 52.4, platelets 283. PT/ INR of 13/0.94. Sodium 142, potassium 4.5, chloride 99, CO2 22. BUN of 28, creatinine 1, glucose 108, amylase of 60, lipase 22. Plasma lactate 2.8. Urinalysis is currently pending. X-RAY DATA: 1. Chest x-ray showed no evidence of acute disease. 2. CT of the abdomen and pelvis showed a minimal bronchopneumonia in the right lower lobe. REVIEW OF SYSTEMS: He denied any fever, chills, blurred vision, dizziness. He has had shortness of breath with exertion. Nausea, vomiting, diarrhea denied and some generalized abdominal pain. Denied any burning or hurting with urination. PHYSICAL EXAMINATION: VITAL SIGNS: On arrival, he had a temperature of 98 degrees, pulse 123, respirations 18, blood pressure 117/79, satting 95% on room air. GENERAL: This is a 38-year-old male, lying in the bed and answers questions appropriately. HENT: Normocephalic, atraumatic. Normal ENT inspection. Oropharynx and nares are clear. EYES: Pupils are equal, round, reactive to light and accommodation. Extraocular movements are intact. NECK: Normal inspection. Normal range of motion. LUNGS: With some decreased breath sounds in the bases. Equal lung expansion. Chest wall movement noted. HEART: Regular rate and rhythm. No murmurs, rubs, or gallops. ABDOMEN: Tenderness to palpation throughout abdomen. Bowel sounds are present x4 quadrants. MUSCULOSKELETAL: He has 5/5 strength x4 extremities. NEUROLOGICAL: The cranial nerves 2-12 appear grossly intact. ASSESSMENT: 1. Right lower lobe bronchopneumonia. 2. Leukocytosis. 3. Chronic back pain. 4. Tobacco abuse. PLAN: He will be admitted to the medical unit at [facility], placed on telemetry, regular diet, incentive spirometry. Rocephin 1 gram IV q. 24 hours, azithromycin 500 IV q. 24 hours, normal saline at 50 mL an hour, Lovenox 40 mg subcutaneous q. 24 hours for DVT prophylaxis, DuoNebs q. 4 hours. Recheck a CBC, BMP in the a.m. We need to update and confirm home medications and further orders after seen by attending. Dictated by KATY Poole for Del Cardenas MD cc: KATY Poole MD Moses Awoniyi, MD
[2019-06-03] MEDS: DUONEB (A & A) INH SCH ×3 (15:50→23:03)
[2019-06-03] MEDS: LOVENOX SUBQ SCH (17:14)
[2019-06-03] MEDS: NS 1,000 ML IV SCH (17:14)
[2019-06-03] MEDS: ROCEPHIN 1 GM in NS 50 ML IV SCH (17:15)
--- NOTE | 2019-06-03 19:18 | HISTORY AND PHYSICAL ---
ADDENDUM: Patient seen and examined by myself. Full note dictated and discussed with nurse practitioner. Patient presented to the hospital with increased cough and congestion, increased work of breathing. She had some generalized abdominal pain and nausea. CT of the abdomen actually demonstrated a bronchial pneumonia in the right lower lobe. We are going to admit him to the hospital for IV antibiotics, fluids, breathing treatments, oxygen and will follow. cc: Del Cardenas MD
[2019-06-04] MEDS: DUONEB (A & A) INH SCH ×6 (03:16→22:59)
[2019-06-04 07:04] LABS: BASO# 0.01 X1000 (0.0-0.2); BASO% 0.1 % (0.0-0.8); EOS# 0.03 X1000 (0.0-0.7); EOS% 0.3 % (0.0-10.0); HEMATOCRIT 39.7 % (42.0-52.0); HEMOGLOBIN 13.1 g/dL (14.0-18.0); IMM GRAN# 0.09 X1000 (0.0-0.04); LYMPH# 2.92 X1000 (1.2-3.4); LYMPH% 31.5 % (20.5-51.1); MCH 27.3 PG (27-31); MCV 82.7 FL (81-99); MONO# 0.76 X1000 (0.11-0.59); MONO% 8.2 % (1.7-9.3); MPV 12.2 FL (7.4-10.4); NEUT# 5.45 X1000 (1.4-6.5); NEUT% 58.9 % (42.2-75.2); PLT 205 X1000 (130-400); RDW 13.5 % (11.5-14.5); WBC 9.26 X1000 (4.8-10.8)
[2019-06-04] MEDS ORDERED: NORCO-7.5 PO PRN (08:17)
[2019-06-04 09:00] LABS: AGAP 11; BUN 14 mg/dL (8-22); CALCIUM 8.3 mg/dL (8.8-10.2); CHLORIDE 108 mmol/L (98-107); COSMO 282; CREATININE 0.6 mg/dL (0.7-1.2); ESTIMATED GFR > 60; GLUCOSE 96 mg/dL (70-104); SODIUM 141 mmol/L (136-145); TCO2 22 mmol/L (25-35)
[2019-06-04] MEDS ORDERED: VANCOMYCIN IV PER PHARMACY MISC SCH (12:00)
[2019-06-04] MEDS ORDERED: VANCOMYCIN 2,000 MG in NS 500 ML IV ONE (13:00)
[2019-06-04] MEDS: ROCEPHIN 1 GM in NS 50 ML IV SCH (15:38)
[2019-06-04] MEDS: LOVENOX SUBQ SCH (15:38)
[2019-06-04] MEDS ORDERED: ZITHROMAX PO SCH (18:00)
[2019-06-04] MEDS: NS 1,000 ML IV SCH (18:07)
[2019-06-04] MEDS ORDERED: KLOR-CON PO ONE (18:22)
--- NOTE | 2019-06-04 19:00 | PROGRESS NOTE ---
DATE: 06/04/2019 SUBJECTIVE: Patient notes he is feeling a little bit better. Still having cough and congestion and still having some shortness of breath. Denies any fevers or chills. PHYSICAL EXAMINATION: Vital Signs: Reviewed temp 97.8 degrees, pulse 92, respiratory rate 18, BP 126/74. General: Patient is awake. Currently he is in no respiratory distress. Pleasant to talk with. HEENT: Normocephalic. Neck: Supple. Cardiovascular: Regular rate. Chest: Clear. Abdomen: Soft. Extremities: Moves all extremities. ASSESSMENT: 1. Leukocytosis, resolved. 2. Hypokalemia. Potassium 3.0. We will give him 1 dose of potassium. 3. Right lower lobe bronchopneumonia. Continue antibiotics, azithromycin and Rocephin and will follow. Hopefully, he can improve and be discharged home soon. cc: Del Cardenas MD
[2019-06-05] MEDS ORDERED: VANCOMYCIN 1,600 MG in NS 250 ML IV SCH (01:00)
[2019-06-05] MEDS: DUONEB (A & A) INH SCH ×4 (03:03→14:32)
[2019-06-05 06:00] LABS: HEMATOCRIT 36.4 % (42.0-52.0); MCH 27.6 PG (27-31); MCV 83.9 FL (81-99); MPV 12.2 FL (7.4-10.4); RBC 4.34 XMIL (4.7-6.1); RDW 13.4 % (11.5-14.5); WBC 5.22 X1000 (4.8-10.8)
[2019-06-05 06:29] LABS: AGAP 11; ALKALINE PHOSPHATASE 51 U/L (32-122); BUN 5 mg/dL (8-22); CALCIUM 8.1 mg/dL (8.8-10.2); CHLORIDE 110 mmol/L (98-107); COSMO 282; CREATININE 0.6 mg/dL (0.7-1.2); ESTIMATED GFR > 60; GLUCOSE 102 mg/dL (70-104); GOT 11 U/L (10-34); GPT 10 U/L (10-44); MAGNESIUM 1.6 mg/dL (1.5-2.7); POTASSIUM 2.7 mmol/L (3.5-5.1); SODIUM 143 mmol/L (136-145); TCO2 23 mmol/L (25-35); TOTAL PROTEIN 5.3 g/dL (6.3-8.3)
[2019-06-05] MEDS ORDERED: KLOR-CON PO ONE (06:33)
[2019-06-05] MEDS: POTASSIUM CHLORIDE 20 MEQ/SWI 20 MEQ/100 ML IVPB IV SCH ×2 (08:56→12:32)
--- NOTE | 2019-06-05 10:08 | DISCHARGE SUMMARY ---
ADMISSION DATE: 06/03/2019 DISCHARGE DATE: 06/05/2019 PRIMARY CARE PHYSICIAN: Casey Rob MD ADMISSION DIAGNOSES: 1. Right lower lobe bronchopneumonia. 2. Leukocytosis. 3. Chronic back pain. 4. Tobacco abuse. DISCHARGE DIAGNOSES: 1. Right lower lobe bronchopneumonia, improved. 2. Leukocytosis, resolved. 3. Hypokalemia, supplemented. 4. Tobacco abuse. 5. Chronic back pain. SUMMARY OF FINDINGS: This is a 38-year-old male who presented to the emergency room with complaints of generalized abdominal pain, nausea, vomiting, diarrhea, shortness of breath with exertion that began approximately 1 week ago and has progressively worsened. He had a white count of 18.04, plasma lactate was 2.8. CT of the abdomen and pelvis showed a minimal bronchopneumonia in the right lower lobe. He was admitted, placed on IV antibiotics, incentive spirometry, DuoNeb, found to have a low potassium and we are supplementing that. His white blood cell count has returned to normal at 5.22 today. He is saturating 100% on room air, and it is felt that he can safely be discharged home after he receives his potassium supplementation. DISCHARGE MEDICATIONS: Will include Tylenol 650 mg p.o. every 4 hours p.r.n.; azithromycin 250 mg p.o. daily, number 5 with no refills; [place] 7.5 one p.o. every 6 hours p.r.n.; cefdinir 300 mg p.o. b.i.d., number 10 with no refills. FOLLOWUP: He will need to follow up with his primary care physician in 1 to 2 weeks and call their office for an appointment. TIME SPENT: This is a 35 minute discharge. Dictated by KATY Poole for Del Cardenas MD cc: KATY Poole MD Moses Awoniyi, MD
[2019-06-05] MEDS: LOVENOX SUBQ SCH (14:34)
[2019-06-05] MEDS: ROCEPHIN 1 GM in NS 50 ML IV SCH (14:35)
[2019-06-05 16:56] VITALS: BP 132/86
--- NOTE | 2019-06-05 21:33 | DISCHARGE SUMMARY ---
ADMISSION DATE: 06/03/2019 DISCHARGE DATE: 06/05/2019 ADDENDUM: The patient is seen and examined by myself and discussed with the nurse practitioner. The patient is awake, alert and pleasant. He is in no distress. He did have some hypokalemia that was replaced with potassium. His leukocytosis has resolved. He has right lower lobe pneumonia and needs to follow up as an outpatient with Dr. Rob in a week to recheck his labs, potassium, white count and his chest x-ray and adjust if needed. cc: Del Cardenas MD
== END 2019-06-05 17:35 | disposition home or self-care (01) | DRG 195 ==
LOC: P.ED 08:16 → P.MEDSURG 14:51
PROVIDERS: ATTEND Family Medicine